=== PATIENT | male | born 1970 | race Caucasian/White ===

== ENCOUNTER 2024-02-22 11:59 | Inpatient (IN) | payer OTHER, SELFPAY ==
[2024-02-22] VITALS (11 sets, daily range): BP systolic 117–171; BP diastolic 79–97; BMI 38.7; BMI 43.4
--- NOTE | 2024-02-22 08:52 | ED.GENMED ---
History of Present Illness
General
Chief Complaint: Abdominal Pain
Source: patient
Time Seen by Provider: 02/22/24 08:39
Travel History
Have you had any contact with someone who has COVID-19?: No
Do you have any symptoms of coronavirus? Fever > 100 degrees, chills, cough, shortness of breath, sore throat, loss of taste or smell, muscle aches, or headache?: No
History of Present Illness
History of Present Illness:
54-year-old male with past medical history of hypertension presenting the emergency department for sudden onset right-sided flank pain radiating into the right groin starting 40 minutes prior to arrival, severe, rated a 40 out of 10 associated
nausea and diaphoresis, did not take anything for pain prior to arrival. Denies any history of similar. No prodromal symptoms. Denies any urinary symptoms, bowel changes, fevers or infectious symptoms. Social history was significant for drinking
4-5 beers daily. Surgical history noncontributory.
Past History
Past History
ED Past Medical History: HTN
ED Past Surgical History: Orthopedic
Social History
Tobacco: Non-smoker
Alcohol: Daily
Drug: None
Personal: Single
Living: with family
Review of Systems
Review of Systems
All Other Systems: ROS reviewed and negative except as documented in HPI and ROS
Phy Exam
Physical Exam
Physical Exam:
GENERAL: Alert , appears very uncomfortable, difficult time sitting still, diaphoretic
EYE: clear conjunctiva b/l
HEAD: NCAT
ENT: o/p clr, mmm.
CARDIAC: Regular rate and rhythm .
LUNGS: Clear breath sounds bilaterally, no acute respiratory distress, no wheezes/rales/rhonchi
ABDOMEN: Soft, tender within the right side of the abdomen extending towards the right flank, no r/g, no cvat, negative Cui sign, no tenderness at McBurney's point
Genitourinary: No testicular edema or erythema, no tenderness over the testicle, normal testicular lie, no hernias or masses appreciated. Positive cremasteric reflex bilateral. No discharge from the urethra
NEUROLOGICAL: Alert and oriented
SKIN: Warm and dry, skin intact.
MUSCULOSKELETAL: well perfused.
PSYCH: Normal and appropriate interaction.
Scores
Heart Failure Risk
Heart Failure Risk Score: Not Applicable
Heart Score for Chest Pain Patients
STEMI patient?: Not applicable
Withdrawal Assessment of Alcohol
Withdrawal Assessment Completed?: Not applicable
Course
Orders/Labs/Results
Orders:
Orders
02/22/24 08:44
Urinalysis Reflex To Culture Urgent
0.9% Sodium Chloride 1000 ml [Nss] 1,000 ml IV BOLUS
Ketorolac [Toradol] 30 mg IV NOW STA
Ondansetron Injectable [Zofran] 4 mg IV NOW STA
02/22/24 08:56
CT Abd/pelvis W Iv Cont Urgent
Comment:
Reason For Exam: right sided flank pain/abd pain
02/22/24 09:01
Complete Blood Count/With Diff Urgent
Comprehensive Metabolic Panel Urgent
Lipase Urgent
02/22/24 09:07
HYDROmorphone [Dilaudid] 1 mg IV NOW STA
02/22/24 10:30
Piperacillin/Tazo 3.375 Gram [Zosyn] 3.375 gram in 50 ml IV NOW
02/22/24 10:44
Acetaminophen [Tylenol] 1,000 mg .ROUTE .STK-MED ONE
Acetaminophen [Tylenol] 1,000 mg PO NOW STA
02/22/24 10:47
Lactic Acid Q4H
Comment: CANCEL 2nd LACTIC ACID IF 1st LACTIC ACID IS LESS THAN 2
Blood Culture Q30M
VIELKA Source: Blood/Venous
Specimen Description:
02/22/24 10:56
Blood Culture Q30M
VIELKA Source: Blood/Venous
Specimen Description:
02/22/24 11:48
Admit/Transfer Patient As Directed
Co-Sign Provider:
Level of Care: Inpatient admission
Assign to:: Medical/Surgical
Physician / Group: Richard Veloz
Diagnosis: diverticulitis
Reason for Hospitalization: diverticulitis
Expected length of stay greater than two midnights?: Yes
ELOS- Estimated Length of Stay in days: 3
I certify the patient meets the requirements for IP care: Yes
Abnormal Lab Results
02/22/24
09:01
WBC 12.2 H 10^3/uL
(4.8-10.8)
Abs Immat Gran (auto) 0.1 H 10^3/uL
(0-0.05)
Absolute Neuts (auto) 7.5 H 10^3/uL
(1.4-6.5)
Absolute Lymphs (auto) 3.6 H 10^3/uL
(1.2-3.4)
Absolute Monos (auto) 0.9 H 10^3/uL
(0.1-0.6)
Glucose 145 H mg/dl
(70-99)
Total Bilirubin 1.8 H mg/dl
(0.2-1.3)
02/22/24 09:01
02/22/24 09:01
Vital Signs
Initial and Last Documented VS:
Initial Vital Signs
Temp Pulse Resp BP Pulse Ox
98.3 F 104 16 171/97 95
02/22/24 08:31 02/22/24 08:31 02/22/24 08:31 02/22/24 08:31 02/22/24 08:31
Last Documented Vital Signs
Temp Pulse Resp BP Pulse Ox
99.8 F 103 16 146/90 94
02/22/24 10:40 02/22/24 11:00 02/22/24 11:00 02/22/24 10:40 02/22/24 11:00
MDM/Problems Addressed
Differential Diagnosis Includes:
Renal/ureteral colic, urinary tract infection/pyelonephritis, dissection
MDM/Problems Addressed:
54-year-old male presenting emergency department for sudden onset right flank pain, 10 out of 10, unable to sit still and very uncomfortable/in a great deal of pain on arrival to the emergency department. Hypertension noted. I do suspect
renal/ureteral colic to be the most likely diagnosis given the sudden onset pain however given patient's hypertension and presentation dissection is certainly in the differential. Will obtain CT with IV contrast. Labs ordered. Toradol, Zofran and
fluids ordered. Reassessment following
Chronic conditions affecting care: HTN
*Radiology
Radiology exam reviewed: preliminary read by ED provider
*Pulse Oximetry
Patient hypoxic: no
*Critical Care Note
Total Time (30-74mins, 75-104mins- exclusive of procedures): Not Applicable
Comment
Comment:
On first reevaluation around 10 AM patient did report improved symptoms following the 1 mg of Dilaudid. He still does appear to be uncomfortable but states he does not wish to have any further medication at this time
Patient Management
Discussion with other providers: Hospitalist and Claim Auditor
Escalation/DeEscalation of care consider admission/obs:
Patient CT scan shows the following:
There is focal thickening of the wall the distal ileum, with significant stranding of the surrounding fat, findings suggestive of an inflammatory process. There are diverticula in this region of the distal ileum, and findings would be most
suggestive of diverticulitis arising from the distal ileum. As the main differential consideration, this could represent diverticulitis arising from the medial cecum with secondary involvement of the distal ileum. A severe terminal ileitis could be
considered, but felt to be less likely.
Question of tiny foci of contained extraluminal air adjacent to the distal ileum. No evidence of free intraperitoneal air. No evidence for a drainable fluid collection, given the limitation of a lack of GI luminal contrast agent.
The appendix is visualized, and is not within this presumed inflammatory process. No CT findings to suggest appendicitis.
Patient has an elevated white blood cell count, continued discomfort and likely microperforation secondary to diverticulitis. Given these findings I do feel patient would benefit from admission for IV antibiotics. On vital sign recheck patient was
noted to have a temperature now of 99.8. Lactic acid and blood cultures were sent. Zosyn ordered. I notified the hospitalist team who accepts patient for continued evaluation and treatment as well as colorectal who will come to the emergency
department to consult on the patient. Patient is agreeable with this plan.
ED Attending Note
-
Portions of this chart may have been created with voice recognition software.� Occasional wrong word or��sound alike� substitutions may have occurred due to the inherent limitations of voice recognition software.
Discharge Plan
Departure
Patient Disposition: Admit
Date of Disposition: 02/22/24
Time of Disposition: 10:35
Presentation/result/management discussed w/ accepting MD/DO: Hospitalist
Discharge Problem:
Acute diverticulitis
Interventions
Interventions:
*Risk Screen - Suicide Last Done: 02/22/24 08:31
*Neglect/Abuse Screening Last Done: 02/22/24 08:31
ED- Fall Risk Assessment Last Done: 02/22/24 11:31
*ED COVID-19 Vaccine History Last Done: 02/22/24 08:31
EL-Ucmeoi-Aqrhukcfvz Assessment Last Done: 02/22/24 09:06
[2024-02-22] MEDS: NSS 1000 IV ×2 (08:58→13:21)
[2024-02-22] MEDS: TORADOL 30 MG IV (08:59)
[2024-02-22] MEDS: ZOFRAN 4 MG IV (09:00)
[2024-02-22 09:14] LABS: % Basophils 0.3 % (0-2); % Eosinophils 0.3 % (0-6); % Immature Granulocytes 0.4 % (0-0.5); % Lymphocytes 29.4 % (20.5-51.1); % Monocytes 7.6 % (1.7-9.3); Absolute Immature Granulocytes 0.1 10^3/uL (0-0.05); Absolute Lymphocytes 3.6 10^3/uL (1.2-3.4); Absolute Monocytes 0.9 10^3/uL (0.1-0.6); Absolute Neutrophils 7.5 10^3/uL (1.4-6.5); Hematocrit 40.8 % (39.0-52.0); Hemoglobin 13.9 g/dL (13.0-18.0); Mean Corp Hgb Conc. 34.1 g/dL (33.0-37.0); Mean Corpuscular Hgb 28.3 pg (27.0-31.0); Mean Corpuscular Volume 82.9 fL (80.0-94.0); Mean Platelet Volume 8.7 fL (7.4-10.4); Nucleated Red Blood Cells % 0 % (-); Platelet Count 218 10^3/uL (130-400); Red Blood Cell Count 4.92 10^6/uL (4.70-6.10); Red Cell Dist. Width 13.2 % (11.5-14.5); White Blood Cell Count 12.2 10^3/uL (4.8-10.8)
[2024-02-22] MEDS: DILAUDID 1 MG IV ×5 (09:25→22:26)
[2024-02-22 09:26] LABS: ALT (SGPT) 21 U/L (0-50); AST (SGOT) 19 U/L (17-59); Albumin 4.3 g/dl (3.5-5.0); Alkaline Phosphatase 85 U/L (38-126); Blood Urea Nitrogen 11 mg/dl (9-20); Calcium 9.3 mg/dl (8.4-10.2); Carbon Dioxide 22 mmol/L (22-30); Chloride 105 mmol/L (98-107); Estimated Creatinine Clearance > 125 ml/min; Glucose 145 mg/dl (70-99); Lipase 50 U/L (23-300); Potassium 4.2 mmol/L (3.5-5.1); Sodium 135 mmol/L (135-145); Total Bilirubin 1.8 mg/dl (0.2-1.3); Total Protein 7.5 g/dl (6.3-8.2); eGFR > 60.00
[2024-02-22] MEDS: ZOSYN 50 IV (10:39)
--- NOTE | 2024-02-22 10:39 | HPS.HSE ---
Addendum entered and electronically signed by Richard Veloz MD 02/22/24 12:48:
I saw and examined the patient.
The PA's note was reviewed and I agree with the note.
Comment:
Patient seen and examined with PA.
History, vitals, labs, and imaging reviewed.
54-year-old male with terminal ileitis with microperforation of unclear cause evident on CT scan. No abscesses noted. Differential includes small bowel diverticulitis versus enteritis. This is a new issue for this patient. Symptoms include right
lower quadrant pain and fever. He is also mildly tachycardic but normotensive. On exam he has moderate localized right lower quadrant tenderness. No personal or family history of inflammatory bowel disease. No prior colonoscopies. At this point
in time there is no need for urgent surgical intervention. Obviously, if his situation does not improve, surgical intervention may be required. Will admit to the hospital, keep n.p.o., continue fluid resuscitation, and start empiric antibiotics in
the form of Zosyn. Will check CRP and fecal procalcitonin. Will start ETH protocol given history of daily substantial alcohol use.
Original Note:
Family Physician
-
Family Physician: * NONE
Chief Complaint
-
right sided flank pain
History of Present Illness
54yo male with a PMH of HTN presents to the ER on 02/22/2024 complaining of right sided abdominal pain that radiated to the groin that started this morning while at [employer] getting coffee. The patient states the pain was a '40 out of 10'. Now he states
it's more like a '5/10'. He also states he feels bloated. He denies nausea, vomiting, fevers, or chills. He has never had pain like this before. He denies any previous episodes of diverticulitis. He denies issues with urination. His last bowel
movement was this morning. He regularly goes every day in the morning. He did not notice any blood in his stool this morning. He has never had a colonoscopy. He denies a family history of rectal or colon cancer, Crohns, or Ulcerative colitis.
In the ER his WBC was 12.2. His vitals are normal and he is afebrile. CT shows there is focal thickening of the wall the distal ileum, with significant stranding of the surrounding fat, findings suggestive of an inflammatory process. There are
diverticula in this region of the distal ileum, and findings would be most suggestive of diverticulitis arising from the distal ileum. As the main differential consideration, this could represent diverticulitis arising from the medial cecum with
secondary involvement of the distal ileum. A severe terminal ileitis could be considered, but felt to be less likely. He will be admitted for further workup.
Medical History
Past Medical History
Past Medical History: Reports HTN ('borderline')
Past Surgical History: Reports Orthopedic (b/l knee surgeries years ago)
Social History
Tobacco: Non-smoker
Alcohol: Daily (4-5 beers a day, 5 days a week)
Drug: None
Personal: Single
Family History
Family History: Not pertinent
Allergies / Home Medications
Allergies reflects when Allergies were last updated in [facility].
Home Medications with original date entered in [facility] [facility]
Allergy/Medication List:
Allergies: NKDA
Medications: none
Review of Systems
-
History Source: Patient
Abdomen/GI: Reports Abdominal Pain (RLQ) and Other (abdominal bloating)
: Reports Flank Pain
Physical Exam
Vital Signs
Vital Signs
Temp Pulse Resp BP Pulse Ox
98.3 F 96 13 152/94 94
02/22/24 08:31 02/22/24 09:31 02/22/24 09:31 02/22/24 09:00 02/22/24 09:31
Physical Exam
General: Well Developed, Well Nourished and No Apparent Distress
GI: Soft, Tender (RLQ- moderate) and Distended (slight)
Skin: Warm and Dry
Neuro: AO x 3
Psych: Calm
Laboratory Results
-
02/22/24 09:
02/22/24 09:
Laboratory Results
Total Bilirubin 1.8 mg/dl (0.2-1.3) H 02/22/24 09:
AST 19 U/L (17-59) 02/22/24 09:
ALT 21 U/L (0-50) 02/22/24 09:
Alkaline Phosphatase 85 U/L (38-126) 02/22/24 09:
Lipase 50 U/L (23-300) 02/22/24 09:
Data Reviewed
-
CT Scan: Image Personally Visualized and interpreted, Report Reviewed by me and Discussed with Patient
Lab Data: Labs Reviewed by me, Discussed with Physician and Discussed with Patient
Impression/Plan
-
IMPRESSION: 54yo male with a PMH of HTN presents to the ER with right sided abdominal/flank pain, found to have inflammatory fat stranding adjacent to the cecum most compatible with acute diverticulitis, WBC 12.2, vitals normal.
PLAN:
1. Admit to our service on med surg.
2. Remain NPO with IVFs.
3. Continue zosyn IV antibiotics.
4. Will need eventual outpatient colonoscopy.
5. ETOH protocol given 4-5 beers/day.
6. DVT prophylaxis: Lovenox, TEDS/SCDS.
7. Tylenol/Toradol/Dilaudid PRN for pain. Zosyn PRN nausea.
8. Will send CRP and fecal procalcitonin.
9. No plans for surgery at this time, however, if worsens, he will require a colectomy. Discussed with patient.
--- NOTE | 2024-02-22 10:57 | EDRN ---
The IV ABX was stopped after only a few drops so BC could be obtained ( they were ordered AFTER the ABX was ordered ) I restarted it after cultures
[2024-02-22] MEDS: TYLENOL 1000 MG PO (11:00)
[2024-02-22 11:09] LABS: Lactic Acid 1.9 mmol/L (0.7-2.0)
[2024-02-22] MEDS: DILAUDID 0.5 MG IV (12:25)
--- NOTE | 2024-02-22 14:53 | CON.HOSP ---
Family Physician
-
Family Physician: * NONE
Chief Complaint
-
Medical consultation
History of Present Illness
54-year-old male with past medical history of hypertension now presents for acute onset of right sided flank pain rating to the right groin. Associated nausea, diaphoresis, started 40 minutes prior to arrival to the hospital. Otherwise denies
fever, chills, vomiting, urinary symptoms, bowel changes. Does drink 4-5 beers daily. Vitals remarkable for temperature 102.9, pulse 113, blood pressure 135/79, respiratory 20. White count 12.2, lactate 1.9. Imaging remarkable for possible
diverticulitis arising from the distal ileum, questionable tiny foci of contained extraluminal air adjacent to the distal ileum possible microperforation. Patient mated for terminal ileitis with microperforation of unclear cause.
Medical History
Past Medical History
Past Medical History: Reports HTN
Past Surgical History: Reports Orthopedic
Social History
Tobacco: Non-smoker
Alcohol: Daily (Fortified beers a day, 5 days a week)
Personal: Single
Family History
Family History: Reviewed & Not Pertinent
Allergies / Home Medications
Allergies reflects when Allergies were last updated in [facility] [employer] [facility].
Home Medications with original date entered in [facility] [employer]
Allergy/Medication List:
Allergies
Allergy/AdvReac Type Severity Reaction Status Date / Time
No Known Allergies Allergy Verified 02/22/24 10:36
Home Medications
No Meds [No Current Medications] 02/22/24
Review of Systems
-
History Source: Patient
A 12 point Review of Systems was completed except as noted: Yes
Physical Exam
Vital Signs
Vital Signs
Temp Pulse Resp BP Pulse Ox
102.9 F H 113 20 135/79 94
02/22/24 14:01 02/22/24 14:01 02/22/24 14:01 02/22/24 14:01 02/22/24 14:01
Physical Exam
General: Well Developed
HEENT: Normocephalic and Anicteric
Respiratory: Clear
Cardiac: S1/S2 and Regular Rhythm
GI: Soft, Tender (RLQ- moderate) and Distended (mild)
Genito-urinary: No Costovertebral Tend
Musculoskeletal: No Clubbing
Skin: Warm and Dry
Neuro: Awake, Alert, Oriented and AO x 3
Psych: Calm
Laboratory Results
-
Laboratory Results
02/22/24 09:01
02/22/24 09:01
Lactic Acid Cancelled 02/22/24 14:45
Total Bilirubin 1.8 mg/dl (0.2-1.3) H 02/22/24 09:01
AST 19 U/L (17-59) 02/22/24 09:01
ALT 21 U/L (0-50) 02/22/24 09:01
Alkaline Phosphatase 85 U/L (38-126) 02/22/24 09:01
Lipase 50 U/L (23-300) 02/22/24 09:01
Data Reviewed
-
CT Scan: Image personally visualized and interpreted and Report Reviewed by Me
Lab Data: Labs Reviewed
Impression / Plan
-
IMPRESSION:
54-year-old male with past medical history of hypertension now presents for acute onset of right sided flank pain rating to the right groin with CT imaging concerning for terminal ileitis with microperforation.
PLAN:
#Sepsis
� Secondary to acute diverticulitis/ileitis with possible complication of microperforation
� N.p.o.
� Continue Zosyn
� Follow-up blood, ua, and stool cultures
� IVF
�Eventual outpatient colonoscopy
� Pain control
� Ensure MAPs remain above 65
#Alcohol abuse
� Continue CIWA protocol
� Ativan as needed
� Drinks 4-5 beers a day
#DVT prophylaxis
� Lovenox
[2024-02-22] MEDS: LR 1000 IV ×2 (15:23→17:07)
[2024-02-22] MEDS: ZOSYN 100 IV ×2 (16:14→21:41)
[2024-02-22] MEDS: LOVENOX 40 MG SC (18:45)
[2024-02-22] MEDS: TORADOL 15 MG IV ×2 (18:46→23:55)
[2024-02-22] MEDS: THIAMINE INJECTION 200 MG IV (20:12)
--- NOTE | 2024-02-22 20:16 | PTCARENOTE ---
Received pt from ER.Pt awake, alert and oriented x3. Pt c/o 8/10 pain in right abd, temp elevated, given IV toradol per schedule. Pt other VSS 96% on RA. Pt has no c/o nausea at this time. Pain reassessed still 8/10 given Dilaudid per orders. Temp
now 99.5. Pt oriented to room, call [facility] within reach, instructed to ring for assistance with any weakness or dizziness, verbalized understanding, on MSAS protocol. Plan of care continues
[2024-02-23] MEDS: LR 1000 IV ×3 (02:08→16:15)
[2024-02-23] MEDS: ZOSYN 100 IV ×4 (04:00→23:04)
[2024-02-23] MEDS: TORADOL 15 MG IV ×4 (05:23→23:04)
[2024-02-23 05:32] LABS: % Basophils 0.3 % (0-2); % Eosinophils 0.2 % (0-6); % Immature Granulocytes 0.3 % (0-0.5); % Lymphocytes 11.5 % (20.5-51.1); % Monocytes 6.6 % (1.7-9.3); % Neutrophils 81.1 % (42.2-75.2); Absolute Lymphocytes 1.4 10^3/uL (1.2-3.4); Absolute Monocytes 0.8 10^3/uL (0.1-0.6); Absolute Neutrophils 9.5 10^3/uL (1.4-6.5); Hematocrit 38.8 % (39.0-52.0); Hemoglobin 12.5 g/dL (13.0-18.0); Mean Corp Hgb Conc. 32.2 g/dL (33.0-37.0); Mean Corpuscular Hgb 28.3 pg (27.0-31.0); Mean Platelet Volume 8.9 fL (7.4-10.4); Nucleated Red Blood Cells % 0 % (-); Platelet Count 173 10^3/uL (130-400); Red Blood Cell Count 4.41 10^6/uL (4.70-6.10); Red Cell Dist. Width 13.5 % (11.5-14.5); White Blood Cell Count 11.7 10^3/uL (4.8-10.8)
[2024-02-23 06:06] LABS: Blood Urea Nitrogen 20 mg/dl (9-20); Calcium 8.5 mg/dl (8.4-10.2); Carbon Dioxide 24 mmol/L (22-30); Chloride 104 mmol/L (98-107); Estimated Creatinine Clearance 116 ml/min; Glucose 127 mg/dl (70-99); Potassium 4.3 mmol/L (3.5-5.1); Sodium 137 mmol/L (135-145); eGFR > 60.00
[2024-02-23 08:01] LABS: Urine Albumin Trace (Neg - Trace); Urine Bilirubin 1+ (Negative); Urine Character Clear (Clear); Urine Color Amber; Urine Glucose Negative (Negative); Urine Ketone 1+ (Negative); Urine Leukocyte Trace (Negative); Urine Nitrite Negative (Negative); Urine Occult Blood Negative (Negative); Urine Specific Gravity 1.015 (<1.030); Urine Urobilinogen 1+ (Neg - 1+)
[2024-02-23 08:17] LABS: Urine Squamous Cell 0-2 /LPF (Few)
[2024-02-23 08:18] LABS: Urine Red Blood Cell 0-2 /HPF (0-2); Urine White Cell 0-2 /HPF (0-5)
[2024-02-23] MEDS: FOLVITE PO (08:18)
[2024-02-23] MEDS: THIAMINE INJECTION 200 MG IV ×2 (08:22→19:59)
[2024-02-23] MEDS: DILAUDID 1 MG IV ×3 (08:30→16:16)
[2024-02-23 09:37] VITALS: BP 140/88
--- NOTE | 2024-02-23 10:04 | W.PN.CRS1 ---
Today's Communication / Plan
-
clears
iv antibiotics
blood cultures pending
Assessment/Plan
-
IMPRESSION: 54yo male with a PMH of HTN presents to the ER with right sided abdominal/flank pain, found to have inflammatory fat stranding adjacent to the cecum most compatible with acute diverticulitis, WBC 12.2, vitals normal.
PLAN:
1. Vitals improving. No longer tachycardic. Afebrile since 1899 yesterday.
2. Advance diet to clears.
3. Continue zosyn IV antibiotics. Blood cultures pending.
4. Will need eventual outpatient colonoscopy.
5. ETOH protocol given 4-5 beers/day.
6. DVT prophylaxis: Lovenox, TEDS/SCDS.
7. Tylenol/Toradol/Dilaudid PRN for pain. Zosyn PRN nausea.
8. Fecal procalcitonin pending.
9. No plans for surgery at this time, however, if worsens, he will require a colectomy. Discussed with patient.
Subjective Data
Subjective Data
Date of Service: February 23, 2024
Patient states he has no appetite. He has not had a bowel movement yet. He does feel a little bit better today as far as his pain goes.
Objective Data
-
Vital Signs
Temp Pulse Resp BP Pulse Ox
99.2 F 94 20 140/88 95
02/23/24 04:00 02/23/24 09:37 02/22/24 23:34 02/23/24 09:37 02/22/24 23:34
Intake & Output
02/22/24 02/23/24 02/24/24
06:59 06:59 06:59
Other:
Number of approximated MODERATE 1
amounts of urine
Lab Results
02/23/24 04:55
02/23/24 04:55
Physical Exam
-
General: No Acute Distress and AOx3
Abdomen: Soft, Non Distended and Tender (RLQ - moderate (improved))
Skin: Warm and Dry
[2024-02-23 11:22] VITALS: BP 146/62
--- NOTE | 2024-02-23 13:55 | W.PN.HOSP.TC ---
Today's Communication/Plan
-
adv to cld
inc kizzy
abx
f/u cultures
Assessment / Plan
Assessment / Plan
Physical Exam
General: Well Developed
HEENT: Normocephalic and Anicteric
Respiratory: Clear
Cardiac: S1/S2 and Regular Rhythm
GI: Soft, Tender (RLQ-mild) and Distended (mild)
Genito-urinary: No Costovertebral Tend
Musculoskeletal: No Clubbing
Skin: Warm and Dry
Neuro: Awake, Alert, Oriented and AO x 3
Psych: Calm
54-year-old male with past medical history of hypertension now presents for acute onset of right sided flank pain rating to the right groin with CT imaging concerning for terminal ileitis with microperforation.
PLAN:
#Sepsis
� Secondary to acute diverticulitis/ileitis with possible complication of microperforation
� Adv to CLD
� Continue Zosyn
� Follow-up blood, stool cultures
� IVF
�Eventual outpatient colonoscopy
� Pain control
� Ensure MAPs remain above 65
#Alcohol abuse
� Continue CIWA protocol
� Ativan as needed
� Drinks 4-5 beers a day
#DVT prophylaxis
� Lovenox
Anticipated Discharge: 24 - 48 hours
Subjective/Interval History
-
Date of Service: February 23, 2024
Feels better today
Objective Data
-
Labs:
Laboratory Results
02/23/24
04:55
WBC 11.7 H
Hgb 12.5 L
Hct 38.8 L
Plt Count 173 D
Sodium 137
Potassium 4.3
Chloride 104
Carbon Dioxide 24
BUN 20
Creatinine 1.0
Glucose 127 H
Calcium 8.5
Vital Signs:
Vital Signs
Temp Pulse Resp BP Pulse Ox
98.2 F 102 18 146/62 97
02/23/24 11:22 02/23/24 11:22 02/23/24 11:22 02/23/24 11:22 02/23/24 11:22
Review of Systems
-
History Source: Patient
All other systems: Not reviewed unless documented
Data Reviewed
-
Diagnostic Radiology: Image personally visualized and interpreted and Report Reviewed by me
CT Scan: Image personally visualized and interpreted and Report Reviewed by me
Labs: Labs Reviewed by me
[2024-02-23 15:25] VITALS: BP 154/98
--- NOTE | 2024-02-23 16:28 | CM ---
,met with patient at bedside.patient lives with alone in an apt with 6 steps down to his apt.then everything is on one floor.he amb i and is i with his adl's.his pcp is [facility] and he uses [facility] [address]he is adm with
abd pain/diverticulitis and is on pain meds,,ciwa protocol, startting cleats.i spoke with patient about whether he would like to speak to b cares to assist with his etoh use.patient told cm he only drinks 2 beers per day and he does not need to
speak to anyone or need assistance/counseling.he told cm he made it to age 54 and he is fine.he has had a vn after dc [facility] many years ago and has never been in ip rehab.Plan dc home with no needs.
[2024-02-23] MEDS: LOVENOX 40 MG SC (17:23)
[2024-02-23 23:50] VITALS: BP 152/92
[2024-02-24] MEDS: LR 1000 IV ×3 (01:01→22:55)
[2024-02-24 03:58] VITALS: BP 150/83
[2024-02-24] MEDS: ZOSYN 100 IV ×4 (04:31→22:49)
[2024-02-24] MEDS: TORADOL 15 MG IV ×2 (05:00→17:36)
[2024-02-24 07:35] VITALS: BP 170/97
[2024-02-24 08:06] LABS: Hematocrit 34.2 % (39.0-52.0); Hemoglobin 11.4 g/dL (13.0-18.0); Mean Corp Hgb Conc. 33.3 g/dL (33.0-37.0); Mean Corpuscular Hgb 28.4 pg (27.0-31.0); Mean Corpuscular Volume 85.3 fL (80.0-94.0); Mean Platelet Volume 9.7 fL (7.4-10.4); Platelet Count 186 10^3/uL (130-400); Red Blood Cell Count 4.01 10^6/uL (4.70-6.10); Red Cell Dist. Width 13.1 % (11.5-14.5); White Blood Cell Count 11.4 10^3/uL (4.8-10.8)
[2024-02-24] MEDS: FOLVITE 1 MG PO (08:33)
[2024-02-24] MEDS: THIAMINE INJECTION 200 MG IV ×2 (08:33→19:24)
[2024-02-24] MEDS: LR IV (08:34)
[2024-02-24 08:44] LABS: ALT (SGPT) 21 U/L (0-50); AST (SGOT) 23 U/L (17-59); Albumin 2.9 g/dl (3.5-5.0); Alkaline Phosphatase 81 U/L (38-126); Blood Urea Nitrogen 17 mg/dl (9-20); Calcium 8.1 mg/dl (8.4-10.2); Carbon Dioxide 25 mmol/L (22-30); Chloride 102 mmol/L (98-107); Estimated Creatinine Clearance > 125 ml/min; Glucose 110 mg/dl (70-99); Potassium 3.6 mmol/L (3.5-5.1); Sodium 134 mmol/L (135-145); Total Bilirubin 1.7 mg/dl (0.2-1.3); Total Protein 5.7 g/dl (6.3-8.2); eGFR > 60.00
[2024-02-24] MEDS: DILAUDID 0.5 MG IV ×3 (10:03→22:49)
--- NOTE | 2024-02-24 10:29 | W.PN.CRS1 ---
Today's Communication / Plan
-
Advance to fulls
Follow-up CRP
Assessment/Plan
-
54-year-old male with PMH of HTN, EtOH use who presented with severe right-sided abdominal pain, WBC 12.2, CRP 86.6, fever of 102.9, CT scan showing terminal ileitis with microperforation, diverticula noted in the area, differential includes
perforated small bowel diverticulitis versus enteritis versus penetrating Crohn's; being treated nonoperatively
AF, HR stable in 100s, WBC 11.4 from 11.7, abdominal pain and appetite improving
� Added CRP to a.m. labs to trend
� Continue nonoperative management, no acute surgical intervention indicated at this point
� Advance to full liquids
� Continue pain control with Toradol and Dilaudid as needed; added Tylenol ATC
�OOB/IS
� Continue DVT PPx with L BX
� OOB/IS
� Follow-up hospitalist for history of EtOH use
Subjective Data
Subjective Data
Date of Service: February 24, 2024
No overnight events. Overall, feels much better
Pain improved, but still present, controlled with pain medicine.
Denies nausea/vomiting. Tolerating clears, but not much appetite.
+flatus +BMs +voiding
Pt is OOB.
Objective Data
-
Vital Signs
Temp Pulse Resp BP Pulse Ox
98.5 F 101 18 170/97 96
02/24/24 07:35 02/24/24 07:35 02/24/24 07:35 02/24/24 07:35 02/24/24 07:35
Intake & Output
02/23/24 02/24/24 02/25/24
06:59 06:59 06:59
Intake Total 2360 / 2360
Output Total 1550 / 1550
Balance 810 / 810
Intake:
Oral fluids 960 / 960
IV fluids (Total) 1200 / 1200
IV piggybacks 200 / 200
Output:
Urine, Voided 1550 / 1550
Other:
Number of approximated MODERATE 1
amounts of urine
Lab Results
02/24/24 06:36
02/24/24 06:36
Physical Exam
-
General: No Acute Distress and AOx3
HEENT: Grossly Normal
Abdomen: Soft, Non Distended and Tender (Mildly tender in the right mid to lower quadrant, no rebound or guarding)
Skin: Warm and Dry
[2024-02-24] MEDS: TYLENOL 1000 MG PO ×3 (12:11→23:01)
[2024-02-24 12:56] LABS: C-Reactive Protein > 270.00 mg/L (0.0-10.00)
--- NOTE | 2024-02-24 13:17 | W.PN.HOSP.TC ---
Today's Communication/Plan
-
adv to full liq
ivf
add amlodipine
Assessment / Plan
Assessment / Plan
Physical Exam
General: Well Developed
HEENT: Normocephalic and Anicteric
Respiratory: Clear
Cardiac: S1/S2 and Regular Rhythm
GI: Soft, Tender (RLQ-mild)
Genito-urinary: No Costovertebral Tend
Musculoskeletal: No Clubbing
Skin: Warm and Dry
Neuro: Awake, Alert, Oriented and AO x 3
Psych: Calm
54-year-old male with past medical history of hypertension now presents for acute onset of right sided flank pain rating to the right groin with CT imaging concerning for terminal ileitis with microperforation.
PLAN:
#Sepsis
� Secondary to acute diverticulitis/ileitis with possible complication of microperforation
� Adv to full liquid diet
� Continue Zosyn
� Follow-up blood, stool cultures
� IVF
�Eventual outpatient colonoscopy
� Pain control
� Ensure MAPs remain above 65
#Hyponatremia
� Monitor with resuscitation
#Hypertension
� Start amlodipine
#Alcohol abuse
� Continue CIWA protocol
� Ativan as needed
� Drinks 4-5 beers a day
� Cessation advised, follow-up outpatient
#DVT prophylaxis
� Lovenox
Anticipated Discharge: 24 - 48 hours
Subjective/Interval History
-
Date of Service: February 24, 2024
Feels better, advancing to full liquids
Objective Data
-
Labs:
Laboratory Results
02/24/24
06:36
WBC 11.4 H
Hgb 11.4 L
Hct 34.2 L
Plt Count 186
Sodium 134 L
Potassium 3.6
Chloride 102
Carbon Dioxide 25
BUN 17
Creatinine 0.8
Glucose 110 H
Calcium 8.1 L
Total Bilirubin 1.7 H
AST 23
ALT 21
Alkaline Phosphatase 81
Vital Signs:
Vital Signs
Temp Pulse Resp BP Pulse Ox
98.5 F 101 18 170/97 96
02/24/24 07:35 02/24/24 07:35 02/24/24 07:35 02/24/24 07:35 02/24/24 07:35
I&O
02/23/24 02/24/24 02/25/24
06:59 06:59 06:59
Intake Total 2360 / 2360
Output Total 1550 / 1550
Balance 810 / 810
Review of Systems
-
History Source: Patient
All other systems: Not reviewed unless documented
Data Reviewed
-
Diagnostic Radiology: Image personally visualized and interpreted and Report Reviewed by me
CT Scan: Image personally visualized and interpreted and Report Reviewed by me
Labs: Labs Reviewed by me
[2024-02-24] MEDS: NORVASC 5 MG PO (14:47)
[2024-02-24 15:35] VITALS: BP 159/90
[2024-02-24] MEDS: LOVENOX 40 MG SC (17:36)
[2024-02-24 23:48] VITALS: BP 162/93
[2024-02-25 03:30] VITALS: BP 153/100
[2024-02-25] MEDS: ZOSYN 100 IV ×2 (04:07→09:37)
[2024-02-25] MEDS: DILAUDID 0.5 MG IV (04:50)
[2024-02-25] MEDS: TYLENOL 1000 MG PO ×2 (05:54→11:53)
[2024-02-25 07:25] VITALS: BP 163/109
[2024-02-25 08:35] LABS: % Basophils 0.3 % (0-2); % Eosinophils 1.4 % (0-6); % Immature Granulocytes 0.4 % (0-0.5); % Lymphocytes 13.8 % (20.5-51.1); % Monocytes 6.4 % (1.7-9.3); % Neutrophils 77.7 % (42.2-75.2); Absolute Eosinophils 0.1 10^3/uL (0-0.7); Absolute Lymphocytes 1.4 10^3/uL (1.2-3.4); Absolute Monocytes 0.6 10^3/uL (0.1-0.6); Absolute Neutrophils 7.7 10^3/uL (1.4-6.5); Hematocrit 35.7 % (39.0-52.0); Mean Corp Hgb Conc. 33.6 g/dL (33.0-37.0); Mean Corpuscular Hgb 28.2 pg (27.0-31.0); Mean Platelet Volume 8.9 fL (7.4-10.4); Nucleated Red Blood Cells % 0 % (-); Platelet Count 208 10^3/uL (130-400); Red Blood Cell Count 4.25 10^6/uL (4.70-6.10); Red Cell Dist. Width 13.2 % (11.5-14.5)
[2024-02-25] MEDS: THIAMINE INJECTION 200 MG IV (08:51)
[2024-02-25] MEDS: FOLVITE 1 MG PO (08:51)
[2024-02-25] MEDS: NORVASC 5 MG PO (08:51)
[2024-02-25 08:58] LABS: Blood Urea Nitrogen 8 mg/dl (9-20); Calcium 8.4 mg/dl (8.4-10.2); Carbon Dioxide 28 mmol/L (22-30); Chloride 103 mmol/L (98-107); Estimated Creatinine Clearance > 125 ml/min; Glucose 100 mg/dl (70-99); Potassium 3.6 mmol/L (3.5-5.1); Sodium 135 mmol/L (135-145); eGFR > 60.00
--- NOTE | 2024-02-25 09:44 | W.PN.CRS1 ---
Today's Communication / Plan
-
Advance to low residue
If tolerating, okay for DC; follow-up in 2 to 4 weeks
Assessment/Plan
-
54-year-old male with PMH of HTN, EtOH use who presented with severe right-sided abdominal pain, WBC 12.2, CRP 86.6, fever of 102.9, CT scan showing terminal ileitis with microperforation, diverticula noted in the area, differential includes
perforated small bowel diverticulitis versus enteritis versus penetrating Crohn's; being treated nonoperatively
AF, HR stable in 90s, WBC 10.0 from 11.4, CRP 269 from >270, abdominal pain and appetite improving
� Continue nonoperative management, no acute surgical intervention indicated at this point
� Advance to low residue
� Continue pain control with Toradol and Dilaudid as needed; added Tylenol ATC
�OOB/IS
� Continue DVT PPx with Lvx
� OOB/IS
� Follow-up hospitalist for history of EtOH use
Dispo�if tolerating low residue, okay for discharge this afternoon; follow-up in 2-4 weeks
Subjective Data
Subjective Data
Date of Service: February 25, 2024
No overnight events.
Pain controlled.
Denies nausea/vomiting. Tolerating fulls.
+flatus +BMs +voiding
Pt is OOB.
Objective Data
-
Vital Signs
Temp Pulse Resp BP Pulse Ox
98.7 F 93 18 163/109 96
02/25/24 07:25 02/25/24 07:25 02/25/24 07:25 02/25/24 07:25 02/25/24 07:25
Intake & Output
02/24/24 02/25/24 02/26/24
06:59 06:59 06:59
Intake Total 2360 / 2360 2600 / 2600
Output Total 1550 / 1550 700 / 700
Balance 810 / 810 2600 / 2600 -700 / -700
Intake:
Oral fluids 960 / 960 1200 / 1200
IV fluids (Total) 1200 / 1200 1200 / 1200
IV piggybacks 200 / 200 200 / 200
Output:
Urine, Voided 1550 / 1550 700 / 700
Other:
Number of approximated MODERATE 6
amounts of urine
Lab Results
02/25/24 08:01
02/25/24 08:01
Physical Exam
-
General: No Acute Distress and AOx3
HEENT: Grossly Normal
Abdomen: Soft, Non Distended and Tender (Mildly tender in the RLQ, improved from yesterday, no rebound or guarding)
Skin: Warm and Dry
--- NOTE | 2024-02-25 12:28 | W.PN.HOSP.TC ---
Today's Communication/Plan
-
lrd
Antibiotics as per surgery
anticipate dc today
amlodipine for hypertension - titrate as needed outpatient
Assessment / Plan
Assessment / Plan
Physical Exam
General: Well Developed
HEENT: Normocephalic and Anicteric
Respiratory: Clear
Cardiac: S1/S2 and Regular Rhythm
GI: Soft, Tender (RLQ-mild)
Genito-urinary: No Costovertebral Tend
Musculoskeletal: No Clubbing
Skin: Warm and Dry
Neuro: Awake, Alert, Oriented and AO x 3
Psych: Calm
54-year-old male with past medical history of hypertension now presents for acute onset of right sided flank pain rating to the right groin with CT imaging concerning for terminal ileitis with microperforation.
PLAN:
#Sepsis
� Secondary to acute diverticulitis/ileitis with possible complication of microperforation
� Adv to LRD - if tolerating can DC
� Continue Zosyn - dc with abx
� Follow-up blood, stool cultures - ngtd
� IVF
�Eventual outpatient colonoscopy
� Pain control
� Ensure MAPs remain above 65
#Hyponatremia
� Monitor with resuscitation
- resolved
#Hypertension
� Start amlodipine
- titrate outpatient with pcp
#Alcohol abuse
� Continue CIWA protocol
� Ativan as needed
� Drinks 4-5 beers a day
� Cessation advised, follow-up outpatient
#DVT prophylaxis
� Lovenox
Anticipated Discharge: Today
Subjective/Interval History
-
Date of Service: February 25, 2024
No acute events overnight, tolerated liquid diet well
Objective Data
-
Labs:
Laboratory Results
02/25/24
08:01
WBC 10.0
Hgb 12.0 L
Hct 35.7 L
Plt Count 208
Sodium 135
Potassium 3.6
Chloride 103
Carbon Dioxide 28
BUN 8 L
Creatinine 0.7
Glucose 100 H
Calcium 8.4
Vital Signs:
Vital Signs
Temp Pulse Resp BP Pulse Ox
98.7 F 93 18 163/109 95
02/25/24 07:25 02/25/24 07:25 02/25/24 07:25 02/25/24 07:25 02/25/24 08:20
I&O
02/24/24 02/25/24 02/26/24
06:59 06:59 06:59
Intake Total 2360 / 2360 2600 / 2600
Output Total 1550 / 1550 700 / 700
Balance 810 / 810 2600 / 2600 -700 / -700
Review of Systems
-
History Source: Patient
All other systems: Not reviewed unless documented
Data Reviewed
-
Diagnostic Radiology: Image personally visualized and interpreted and Report Reviewed by me
CT Scan: Image personally visualized and interpreted and Report Reviewed by me
Labs: Labs Reviewed by me
--- NOTE | 2024-02-25 14:39 | CM ---
met with patient today.espsis on iv bx to be changed to po.pain controlled,eventual op colonoscopy.if tolerating a LR diet can dc home with no needs.he has declined contact/resources from [facility].
[2024-02-25 15:35] VITALS: BP 187/106
--- NOTE | 2024-02-25 17:27 | W.DCSUMMARY ---
Discharge Summary
Discharge Data
Date of Admission: 02/22/24
Date of Discharge: 02/25/24
-
Pending Results: No
Hospital Course
Mr Jennings is a 54 yo male who presented through the ED with right sided abdominal and flank pain with terminal ileitis and microperforation of unclear cause evident on CT scan. He was admitted for IV antibiotics, bowel rest, IV hydration and close
monitoring. He responded well to medical management with no need for surgical intervention during his admission. He was mildly tachycardic with fevers on presentation with resolution prior to discharge. Leukocytosis present on admission also
resolved. He has improvement in pain and diet was able to be slowly advanced and well tolerated. Hospitalist team followed the patient during his stay for medical management with addition of PO antihypertensive which was continued upon discharge at
their recommendation. He was transitioned to PO antibiotic upon discharge with plan for outpatient follow up with surgery.
Discharge Plan
-
Patient Disposition: Home (Routine Discharge)
Discharge Diagnosis/Procedures: distal ileum inflammation
Condition: Good
Diet: Low Residue
Activity: No restrictions
Driving Restrictions: As prior to admission
Bathing Restrictions: None
Activity Restrictions/Additional Instructions:
Please follow up with your primary care provider regarding your blood pressure, a new medication was started this admission and may need titrated.
Instructions: Low Fiber Diet
Referrals:
Sheldon Lowry MD [Active] - in two to four weeks
Prescriptions:
New
acetaminophen [acetaminophen] 325 mg tablet
650 mg PO Q4HPRN PRN (Reason: mild pain) Qty: 1 0RF
ibuprofen 200 mg tablet
400 - 600 mg PO Q6HPRN PRN (Reason: moderate pain) Qty: 1 0RF
amoxicillin-pot clavulanate 875-125 mg tablet
1 tab PO Q12 Qty: 11 0RF
amlodipine 5 mg Tablet
5 mg PO DAILY Qty: 30 0RF
Discharge Orders:
Discharge Patient (As Directed); Ordered 02/25/24
Ordered By: Cindy Pinto
Discharge Date and Time
Discharge Date/Time: 02/25/24 15:48
Print Language: ARABIC
[2024-02-27 18:43] LABS: Calprotectin, Fecal 191 ug/g (<=49)
== END 2024-02-25 15:48 | disposition home or self-care (01) | DRG 872 ==
LOC: 4 EAST ACU 11:59
PROVIDERS: Physician Assistant; Physician Assistant Medical; Surgery; ADMITTING PHYSICIAN Surgery; CONSULT PHYSICIAN Internal Medicine; EMERGENCY PHYSICIAN Emergency Medicine
DX: A41.9 Sepsis, unspecified organism (principal); K57.92 Diverticulitis of intestine, part unspecified, without perforation or abscess without bleeding; K50.00 Crohn's disease of small intestine without complications; E87.1 Hypo-osmolality and hyponatremia; I10 Essential (primary) hypertension; F10.10 Alcohol abuse, uncomplicated
CPT/HCPCS: 74019; 74177; 80048; 80053; 81003; 81015; 83605; 83690; 83993; 85025; 85027; 86140; 87040; 87045; 87046; 87427; 96361; 96365; 96375; 99285; Q9967

== ENCOUNTER → 2024-05-27 06:33 | Day surgery (SDC) | payer OTHER, SELFPAY | LOC: GI 06:33 | PROVIDERS: ATTENDING PHYSICIAN Internal Medicine Gastroenterology | DX: K63.3 Ulcer of intestine (principal); K63.89 Other specified diseases of intestine; K64.0 First degree hemorrhoids; K57.30 Diverticulosis of large intestine without perforation or abscess without bleeding; C18.7 Malignant neoplasm of sigmoid colon; D12.3 Benign neoplasm of transverse colon; D12.5 Benign neoplasm of sigmoid colon | CPT/HCPCS: 45385; 45381; 45380; 88305; 88342 ==

== ENCOUNTER → 2024-06-04 13:10 | Outpatient (REF) | payer OTHER, SELFPAY | LOC: RAD 13:10 | PROVIDERS: ATTENDING PHYSICIAN Internal Medicine Gastroenterology; FAMILY PHYSICIAN Family Medicine | DX: C18.7 Malignant neoplasm of sigmoid colon (principal) | CPT/HCPCS: 71260; 74177; Q9967 ==

== ENCOUNTER 2024-06-13 06:28 | Day surgery (SDC) | payer OTHER, SELFPAY ==
[2024-06-13 13:25] VITALS: BMI 35.5
[2024-06-13 13:26] VITALS: BMI 35.5
[2024-06-13 13:27] VITALS: BP 153/98
[2024-06-13 15:00] VITALS: BP 120/100
[2024-06-13 15:15] VITALS: BP 124/93
[2024-06-13 15:30] VITALS: BP 144/95
== END 2024-06-13 15:41 | disposition home or self-care (01) ==
LOC: SDS 06:28
PROVIDERS: ATTENDING PHYSICIAN Internal Medicine Gastroenterology
DX: C18.7 Malignant neoplasm of sigmoid colon (principal); K57.30 Diverticulosis of large intestine without perforation or abscess without bleeding; K64.0 First degree hemorrhoids
CPT/HCPCS: 45349; 88305; 88342

== ENCOUNTER 2024-07-18 10:59 | Inpatient (IN) | payer OTHER, SELFPAY ==
[2024-07-05 07:15] LABS: % Basophils 0.3 % (0-2); % Eosinophils 1.9 % (0-6); % Immature Granulocytes 0.2 % (0-0.5); % Lymphocytes 39.2 % (20.5-51.1); % Monocytes 7.5 % (1.7-9.3); % Neutrophils 50.9 % (42.2-75.2); Absolute Eosinophils 0.1 10^3/uL (0-0.7); Absolute Lymphocytes 2.3 10^3/uL (1.2-3.4); Absolute Monocytes 0.4 10^3/uL (0.1-0.6); Hematocrit 43.8 % (39.0-52.0); Mean Corp Hgb Conc. 34.2 g/dL (33.0-37.0); Mean Corpuscular Hgb 26.8 pg (27.0-31.0); Mean Corpuscular Volume 78.4 fL (80.0-94.0); Mean Platelet Volume 8.6 fL (7.4-10.4); Nucleated Red Blood Cells % 0 % (-); Platelet Count 247 10^3/uL (130-400); Red Blood Cell Count 5.59 10^6/uL (4.70-6.10); Red Cell Dist. Width 14.6 % (11.5-14.5); White Blood Cell Count 5.8 10^3/uL (4.8-10.8)
[2024-07-05 07:27] LABS: APTT 25.7 Sec (23.4-35.0); INR 1.08; PT 13.8 Sec (11.4-14.6)
[2024-07-05 07:41] LABS: ALT (SGPT) 25 U/L (0-50); AST (SGOT) 27 U/L (17-59); Albumin 4.6 g/dl (3.5-5.0); Alkaline Phosphatase 80 U/L (38-126); Blood Urea Nitrogen 15 mg/dl (9-20); Calcium 9.7 mg/dl (8.4-10.2); Carbon Dioxide 24 mmol/L (22-30); Chloride 104 mmol/L (98-107); Glucose 109 mg/dl (70-99); Potassium 4.4 mmol/L (3.5-5.1); Sodium 142 mmol/L (135-145); Total Bilirubin 1.5 mg/dl (0.2-1.3); Total Protein 7.5 g/dl (6.3-8.2); eGFR > 60.00
[2024-07-05 09:28] LABS: Glycohemoglobin (HgbA1c) 5.4 % (4.0-5.6)
--- NOTE | 2024-07-05 13:34 | PTCARENOTE ---
Patients 07/05 ECG abnormal- reviewed by Dr. Landry-no additional interventions requires
[2024-07-18] VITALS (11 sets, daily range): BP systolic 133–149; BP diastolic 88–101; BMI 36.3
[2024-07-18] MEDS: CELEBREX 200 MG PO (12:06)
[2024-07-18] MEDS: TYLENOL 1000 MG PO ×2 (12:06→23:00)
[2024-07-18] MEDS: LYRICA 150 MG PO (12:07)
[2024-07-18] MEDS: NORMOSOL-R/PLASMALYTE-A 1000 IV ×2 (12:18→19:42)
[2024-07-18] MEDS: HEPARIN 5000 UNITS SC (13:09)
--- NOTE | 2024-07-18 18:59 | W.IMMPOSTOP ---
Addendum entered and electronically signed by Sheldon Lowry MD 07/30/24 18:50:
Error, missing information: surgery was for curative intent
Original Note:
Surgical Immed Post Op Note
-
Primary Surgeon: Sheldon Lowry MD
Assisting Surgeon: LOGAN Padilla
Pre-op Diagnosis: sigmoid colon cancer
Post-op Diagnosis: sigmoid colon cancer
Procedure Performed: robotic sigmoidectomy, lysis of adhesion greater than 45 mins, mesenteric angiography, flexible sigmoidoscopy, TAP block
Anesthesia Type: general
Specimen / Cultures: sigmoid colon, proximal and distal donut
Estimated Blood Loss: 50mL
IVF: 1.4L crystalloid
UOP: 750mL
Complications: none
Operative Findings: mild adhesions in the RLQ associated with the cecum and terminal ileum, taken down easily with blunt dissection; no concerning peritoneal or liver lesions; identified tattoo in the distal sigmoid and mid-sigmoid; sigmoid was
quite redundant; anatomy was distorted due to significant inflammation in the mesentery, possibly due to tattoo; on flex sig, confirmed proximal and distal tattoo about 5cm from the malignant polyp scar; high ligation of TOYIN; performed
intracorporeal EEA stapled anastomosis, negative leak test, donuts intact x2; performed laparoscopic TAP block
--- NOTE | 2024-07-18 19:11 | OR.RPT ---
Operative Report
Operative Report
DATE OF OPERATION: 07/18/2024
SURGEON: Sheldon Lowry MD
PREOPERATIVE DIAGNOSIS: Sigmoid colon cancer
POSTOPERATIVE DIAGNOSIS: Sigmoid colon cancer
OPERATION: Robotic sigmoidectomy, adhesiolysis greater than 45 min, mesenteric angiography with ICG, flexible sigmoidoscopy, laparoscopic TAP block
ASSISTANTS:
1. LOGAN Padilla
ANESTHESIA: General
ESTIMATED BLOOD LOSS: 50 mL
IVF: 1.4 L
URINE OUTPUT: 750 mL
FINDINGS:
1. Significant amount of adhesions in the RLQ associated with the cecum, terminal ileum and anterior abdominal wall, as well as significant adhesions from the sigmoid to the LLQ and left pelvic brim
2. No concerning lesions noted on the peritoneal surfaces or surface of the liver; identified proximal tattoo in the mid sigmoid and distal tattoo in the distal sigmoid; confirmed on flexible sigmoidoscopy
3. Transected proximally in the mid sigmoid, proximal to the proximal tattoo, and at the rectosigmoid junction; performed high ligation of the TOYIN; confirmed good perfusion to our staple lines and performed an intracorporeal stapled EEA
anastomosis; donuts intact x 2, negative leak test, anastomosis intact on flexible sigmoidoscopy
SPECIMENS:
1. Sigmoid colon
2. Proximal donut
3. Distal donut
DRAINS: None
COMPLICATIONS: No immediate complications.
INDICATIONS: The patient is a 54-year-old male who initially presented to [facility] in January 2024 with abdominal pain and was found to have thickening in the cecum and terminal ileum with microperforation, concerning for ileal
diverticulitis. He completely recovered from this and underwent a colonoscopy on 05/27/[address] Finnegan to workup the colitis/ileitis. She identified SCAD in the ascending colon, removed 8 tubular adenomas and identified a 3.5 cm sigmoid polyp
that she tattooed proximally and distally and biopsied. Biopsies showed 'at least intramucosal adenocarcinoma.' Then, Dr. Barrientos performed a flexible sigmoidoscopy with EMR of the sigmoid polyp on 06/13/24. The path showed invasive adenocarcinoma
with a positive deep margin. Therefore, I recommended surgery. His staging CT CAP showed a 3 mm RML pulmonary nodule, likely benign and no other concerning mets or lymphadenopathy. His CEA was 1.1. The operation was discussed with the patient in
detail, including the risks, benefits and alternatives. Risks described included, but not limited to, bleeding, infection, anastomotic leak, damage to nearby structures (i.e.- ureter, bowel, solid organs), incisional hernia, need for ostomy
creation, conversion to open, inability to remove the entire cancer, future recurrence or metastasis and anesthetic risks. The patient understood and agreed to proceed.
PROCEDURE IN DETAIL: The patient was taken to the operating room and placed on the operating table in supine position. Sequential compression devices were placed bilaterally. General anesthesia was then induced and the patient was intubated without
complication. The patient was then placed in lithotomy position with both arms tucked. Kat catheter was placed with sterile technique. The abdomen was then shaved, prepped and draped in a sterile fashion. A time-out was then performed verifying
the correct patient, procedure, operative site, positioning, and special equipment. Anesthesia placed an orogastric tube. Preoperative antibiotics were given. A marking pen was used to jose carlos out the midline.
An 8 mm incision at Sellers's point was made with an 11 blade scalpel. A Veress needle was used to gain abdominal access. After 3 clicks, the insufflation was connected to the Veress needle and the opening pressure was noted to be less than 8 mmHg.
The abdomen was then insufflated to a pressure of 12 mmHg. An 8 mm robotic trocar was then inserted. The robotic camera was advanced and intra-abdominal placement was confirmed. The abdomen was examined. No injuries were noted from port entry or
from the Veress needle. No concerning lesions were noted on the surface of the liver or the peritoneum. There were some adhesions from the right lower quadrant to the anterior abdominal wall which were filmy and easily taken down with blunt
dissection. The remaining three 8mm robotic ports were placed under direct visualization in a diagonal fashion from Sellers's point to the right lower quadrant, as well as an 8mm assist port in the right lateral mid abdomen, taking care to avoid
injury to the right epigastric vessels. The left upper quadrant port was changed to the air seal port.
A 4 cm Pfannenstiel incision was created 2 fingerbreadths above the pubic symphysis. This was carried down to the anterior fascia with electrocautery and hemostasis was assured. The fascia was then incised to just beyond the length of the skin
incision. The fascia was grasped with Pamela's and elevated. The adhesions to the anterior fascia were taken down bluntly from the rectus abdominis muscle and the midline attachment was taken down with electrocautery. This was performed both
superiorly and inferiorly to our incision. The rectus was then split along the midline, first scoring the linea alba with electrocautery, then bluntly splitting with a Gloria clamp to reveal the peritoneum, which was grasped and elevated with
Kellys. The layer of preperitoneal fat was thick and the robotic endoscope was inserted in order to assist with identifying the peritoneal layer and ensuring no injury to peritoneal structures. The peritoneum was then incised with Metzenbaum
scissors. The peritoneum was then incised cranially and caudally to the greatest extent that our incision would allow, taking care to avoid injury to the bladder. A small Arturo with port cap was placed and a robotic 12 mm port was placed through
the port cap. Then, the patient was placed in steep trendelenburg and [id number]. The omentum was grasped and retracted over the transverse colon with laparoscopic graspers. The robot was docked from the patient's left side. From the RLQ to
Sellers's point, the instruments introduced were the scissors, camera, bipolar grasper and tip-up grasper, respectively.
There were a significant amount of interloop adhesions between the cecum, terminal ileum and sigmoid colon. These were taken down carefully with sharp dissection. The small bowel was retracted out of the pelvis and towards the right upper
quadrant. Several adhesions were noted from the left pelvic sidewall to the sigmoid colon, which were taken down with sharp dissection and electrocautery. There were also adhesions between the sigmoid colon and the pelvic inlet circumferentially
that were freed up with blunt dissection. There was more adhesions and chronic inflammation around the distal sigmoid than I would have anticipated, possibly due to the inflammatory reaction from the tattoos. The sigmoid was then grasped and
elevated to commence a medial to lateral dissection. However, the peritoneum was very thick and not flexible. Additionally, the mesocolon was fatty and redundant. Lastly, the right iliac was oriented quite medially and was tortuous, distorting
the normal anatomy. The appropriate plane was not easily identified. Therefore, I began with a lateral to medial dissection. I grasped the sigmoid and retracted towards the right upper quadrant. I freed up the mesocolon from the LLQ and left
pelvis. I easily identified the left ureter by witnessing vermiculation. I kept the left ureter and left gonadal safe from my dissection. I took down the white line of Toldt up to the distal descending colon and mobilized the mesocolon from the
retroperitoneum, taking care to avoid injury to Gerota's fascia. I scored the peritoneum overlying the left pelvis and mobilized the rectosigmoid from the left side of the pelvis, taking care to keep the left ureter safe. I retracted the sigmoid
laterally to attempt a medial to lateral dissection again. I scored the peritoneum overlying the sacral promontory. Ultimately, I discovered that the right iliac artery was not in its usual retroperitoneal plane. I was able to dissect the
mesocolon from the right iliac, taking care to avoid injury to the right iliac artery. I was able to identify the presacral plane and connected this to my lateral dissection. I carried this dissection posteriorly to just beyond the sacral
promontory. I continued my dissection up the right side of the pelvis to match the level of my dissection on the left. My dissection remained above the anterior reflection. I took the presacral dissection superiorly towards the TOYIN pedicle,
taking care to avoid injury to the hypogastric nerves. The TOYIN pedicle was difficult to dissect as there was a significant amount of fatty tissue and possibly lymphadenopathy associated with it. I took care to include the bulky mesentery with the
specimen for a good lymph node harvest in case there was any tumor deposits within the lymph nodes. After very careful dissection, the TOYIN was dissected out circumferentially. The left ureter was kept safe from this dissection.
Prior to dividing the TOYIN, I performed a flexible sigmoidoscopy to confirm my tattoo markings and the relationship of them to the polyp scar. Identified the distal tattoo at the distal sigmoid, 3 to 4 cm proximal to the rectosigmoid junction. I
identified what appeared to be a scar in the mid/distal sigmoid. I identified the proximal tattoo in the mid sigmoid colon. The tattoos were easily greater than 5 cm from the likely polypectomy scar. Since he had multiple sigmoid polyps removed,
it is difficult to confirm that this is the polypectomy scar from the malignant polyp, but I did not see any polypectomy scar close to the tattoos, so I felt transecting the sigmoid outside of the tattoos would provide an adequate margin. I divided
the TOYIN pedicle in a high-ligation fashion, about 2 cm from its takeoff, using the white load of the robotic stapler, ensuring that the left ureter was kept safe. The TOYIN stump was hemostatic. I grasped the specimen side of the TOYIN pedicle and
elevated this. I divided the mesentery toward my proximal transection point using the vessel sealer, to about 2 cm proximal to the proximal tattoo.
I turned back to the pelvis for my distal staple line. I retracted the rectosigmoid anteriorly again, and then created a tunnel through the mesorectum at my proposed distal transection point on the rectum, which was just distal to the rectosigmoid
junction. I divided the mesorectum with the vessel-sealer. I used a 60 mm robotic stapler with a blue load to come across the proximal rectum. Anesthesia injected ICG. Using firefly, I evaluated my proposed proximal transection point. This
appeared ischemic. I selected a point about 3 to 4 cm more proximal which was well-perfused. I cleaned up the mesentery circumferentially at this point. I elected to proceed with an intracorporeal end-to-end stapled anastomosis with EEA stapler.
A colotomy in the devascularized segment of colon was created using the robotic scissors at a point distal to our proposed proximal transection point. The anvil with a long Prolene suture attached at the tip was then carefully passed through the
colotomy and advanced proximally up the descending colon, with the long Prolene remaining outside of the colon. The colotomy was then closed around the Prolene stitch using a V-Loc running stitch. The robotic stapler with a blue load was used to
staple and divide the descending colon at our proposed transection point where adequate perfusion was noted on firefly. The specimen was then placed in the left upper quadrant. The Prolene attached to the anvil was grasped and pulled through the
staple line after removing a few ashley. I grasped and elevated the anvil and cleaned up the staple line from intervening mesentery and fat. The anvil was seated along the staple line nicely without intervening diverticula or mesentery.
I checked the reach of the proposed anastomosis and it was very adequate. The operative field was surveyed and hemostasis was ensured. Then, sizers were passed up the rectum to ensure adequate circumference and length. I passed the EEA stapler
transanally to the distal staple line. The pin was extended and was connected with the anvil. After ensuring there was no twist to the mesentery and there was no tension, the EEA stapler was then closed for 1 minute and then fired. Both donuts
were intact and were sent separately for pathology. A leak test was performed by filling the pelvis with saline, occluding the proximal lumen and insufflating with the flexible sigmoidoscope. There was no evidence of leak from the anastomosis.
Endoscopically, the anastomosis was intact without evidence of bleeding. The colorectum was desufflated and the flexible sigmoidoscope removed.
The robotic instruments were removed and the robot was undocked. Using laparoscopic visualization, a TAP block was performed using a total of 30 mL of 0.25% Marcaine with epinephrine mixed with dexamethasone and injecting in the transversus
abdominis plane bilaterally. The remaining ports were removed under direct visualization and no bleeding was noted. Due to the bulk of the mesentery on the specimen, the Pfannenstiel incision was preemptively extended 1 cm on each side, for a
total of 6 cm. The specimen was removed without difficulty. The Pfannenstiel incision was then closed in layers. The peritoneum was closed with a running #1 Vicryl stitch. The anterior fascia was closed using a #1 Stratafix suture. The
incisions were irrigated. The remaining 30 cc of 0.25% Marcaine with epinephrine mixed with dexamethasone were injected around the incisions. The incisions were closed with running subcuticular 4-0 Monocryl and dressed with Dermabond.
At this point, the procedure was complete. The patient was awoken and extubated without complication. All needle, sponge and instrument counts were reported as correct. The patient tolerated the procedure well and was transferred to the recovery
room in stable condition with the kat in place.
DICTATED BY: Sheldon Lowry MD
[2024-07-18] MEDS: TORADOL 15 MG IV (19:41)
[2024-07-18] MEDS: SUBLIMAZE 50 MCG IV ×2 (19:42→19:57)
--- NOTE | 2024-07-18 21:20 | PTCARENOTE ---
Pt arrived on from PACU at 20:52, post Robotic Sigmoidectomy. Pt's sister Michelle arrived with pt. PMH HTN, HLD, Diverticulitis, Diverticulosis, Polyps, Colon Cancer, anxiety, b/l knee surgery. Pt has 5 lap sites & a transverse lower abdominal
incision. Pt has a kat to be removed POD#2. Pt AOx3, bed in a low position, call corrales in reach.
[2024-07-18] MEDS: DILAUDID 0.5 MG IV (21:28)
[2024-07-19 00:05] VITALS: BP 146/91
[2024-07-19] MEDS: TORADOL 15 MG IV ×4 (01:00→20:14)
[2024-07-19] MEDS: DILAUDID 0.5 MG IV ×2 (01:39→05:45)
[2024-07-19 03:25] VITALS: BP 129/84
[2024-07-19] MEDS: TYLENOL 1000 MG PO ×3 (05:09→17:00)
[2024-07-19 06:00] VITALS: BMI 37.1
[2024-07-19 07:00] LABS: % Immature Granulocytes 0.4 % (0-0.5); % Lymphocytes 12.2 % (20.5-51.1); % Monocytes 7.9 % (1.7-9.3); % Neutrophils 79.5 % (42.2-75.2); Absolute Lymphocytes 0.9 10^3/uL (1.2-3.4); Absolute Monocytes 0.6 10^3/uL (0.1-0.6); Absolute Neutrophils 5.9 10^3/uL (1.4-6.5); Hematocrit 41.9 % (39.0-52.0); Hemoglobin 14.5 g/dL (13.0-18.0); Mean Corp Hgb Conc. 34.6 g/dL (33.0-37.0); Mean Corpuscular Hgb 27.6 pg (27.0-31.0); Mean Corpuscular Volume 79.8 fL (80.0-94.0); Mean Platelet Volume 8.8 fL (7.4-10.4); Nucleated Red Blood Cells % 0 % (-); Platelet Count 214 10^3/uL (130-400); Red Blood Cell Count 5.25 10^6/uL (4.70-6.10); Red Cell Dist. Width 14.5 % (11.5-14.5); White Blood Cell Count 7.4 10^3/uL (4.8-10.8)
[2024-07-19 07:10] VITALS: BP 154/97
[2024-07-19 07:47] LABS: Blood Urea Nitrogen 11 mg/dl (9-20); Calcium 8.7 mg/dl (8.4-10.2); Carbon Dioxide 20 mmol/L (22-30); Chloride 101 mmol/L (98-107); Estimated Creatinine Clearance > 125 ml/min; Glucose 135 mg/dl (70-99); Potassium 4.1 mmol/L (3.5-5.1); Sodium 137 mmol/L (135-145); eGFR > 60.00
[2024-07-19] MEDS: NORVASC 5 MG PO (07:58)
[2024-07-19] MEDS: ENTEREG 12 MG PO ×2 (07:58→20:14)
--- NOTE | 2024-07-19 08:44 | W.PN.CRS1 ---
Today's Communication / Plan
-
As below
Assessment/Plan
-
54-year-old male with PMH of HTN and right-sided colitis/ileitis, consistent with SCAD, who was found to have a malignant polyp in the sigmoid with a positive margin, presented for elective surgery
POD 1 robotic sigmoidectomy, tap block
AF VSS
WBC 7.4, Hb 14.5 from 15.0, Cr 0.6, UOP adequate
� Will advance to regular diet; instructed patient to go slow: small meals and small bites
� Continue pain control with Tylenol, Toradol, Dilaudid as needed; will add oxycodone as needed; continue Entereg
� DC Crowell
� Start DVT PPx with Lovenox; will need a total of 28 days of postop DVT PPx, prescribe Eliquis 2.5 mg twice daily on discharge
� OOB/encourage IS
� Continue amlodipine for HTN
Dispo�possible DC in 1 to 2 days
Subjective Data
Subjective Data
Date of Service: July 19, 2024
Overnight, had issues with back spasm/pain. Improved after pain medicine, no issues this morning.
Pain otherwise controlled.
Denies nausea/vomiting. Tolerating diet.
-flatus -BMs +voiding
Pt is OOB.
Objective Data
-
Vital Signs
Temp Pulse Resp BP Pulse Ox
98.4 F 92 18 154/97 95
07/19/24 07:10 07/19/24 07:58 07/19/24 07:10 07/19/24 07:58 07/19/24 07:10
Intake & Output
07/18/24 07/19/24 07/20/24
06:59 06:59 06:59
Intake Total 1180 / 1180
Output Total 610 / 610
Balance 570 / 570
Intake:
Oral fluids 480 / 480
IV fluids (Total) 700 / 700
Normosol 100 / 100
Output:
Urine, Crowell 610 / 610
Lab Results
07/19/24 06:16
07/19/24 06:16
Physical Exam
-
General: No Acute Distress and AOx3
HEENT: Grossly Normal
Abdomen: Soft, Non Distended, Tender (appropriately ttp near incisions), No Guarding and No Rebound
Skin: Warm and Dry
Wound: No Signs of Infection, Dressing in Place (Dermabond) and No Skin Erythema
[2024-07-19] MEDS: ROXICODONE 10 MG PO ×3 (09:40→22:40)
[2024-07-19] MEDS: NORMOSOL-R/PLASMALYTE-A IV (14:16)
--- NOTE | 2024-07-19 14:26 | PTOTSP ---
Received order for PT and reviewed chart. S/w RN who reports pt got himself dressed and has been ambulating laps in the hallway independently. We agreed pt does not need inpatient PT. Will sign off.
--- NOTE | 2024-07-19 15:29 | CM ---
Met with patient at bedside; initial assessment completed
Pharmacy verified: [facility] @ [id number] [facility]
Patient lives alone in apartment; 10 steps down to enter; bath has tub w/shower
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
NO DME
NO SNF or Home Health History
Sister or Friend will transport home
Plan: discharge to home; no needs anticipated
[2024-07-19 15:35] VITALS: BP 144/65
[2024-07-19] MEDS: LOVENOX 40 MG SC (17:00)
[2024-07-19 19:06] VITALS: BP 139/93
[2024-07-19 23:02] VITALS: BP 166/88
[2024-07-20] MEDS: TYLENOL 1000 MG PO ×2 (01:57→06:01)
[2024-07-20] MEDS: TORADOL 15 MG IV ×2 (01:57→08:48)
[2024-07-20 06:00] VITALS: BMI 37.0
[2024-07-20 07:00] VITALS: BP 136/97
[2024-07-20] MEDS: NORVASC 5 MG PO (08:47)
[2024-07-20] MEDS: ENTEREG 12 MG PO (08:47)
--- NOTE | 2024-07-20 09:51 | W.PN.CRS1 ---
Today's Communication / Plan
-
Dispo planning
Assessment/Plan
-
54-year-old male with PMH of HTN and right-sided colitis/ileitis, consistent with SCAD, who was found to have a malignant polyp in the sigmoid with a positive margin, presented for elective surgery
POD 2 robotic sigmoidectomy, tap block
AFVSS
� Continue regular diet
� Continue pain control with Tylenol, Toradol, oxycodone as needed
� DVT PPx with Lovenox; will need a total of 28 days of postop DVT PPx, Eliquis 2.5 mg twice daily on discharge
� OOB/encourage IS
� Continue amlodipine for HTN
Discharge to home
Subjective Data
Procedure
07/18/24 robotic sigmoidectomy, lysis of adhesion greater than 45 mins, mesenteric angiography, flexible sigmoidoscopy, TAP block
Subjective Data
Date of Service: July 20, 2024
Patient seen and examined at bedside with Dr. Pennington. Mark n/v. Tolerating diet. Minimal discomfort. Passing flatus and stools. Voiding without difficulty. Eager to go home.
Objective Data
-
Vital Signs
Temp Pulse Resp BP Pulse Ox
98.0 F 67 16 136/97 97
07/20/24 07:00 07/20/24 08:47 07/20/24 07:00 07/20/24 08:47 07/20/24 07:00
Intake & Output
07/19/24 07/20/24 07/21/24
06:59 06:59 06:59
Intake Total 1180 / 1180 560 / 560
Output Total 610 / 610 1050 / 1050
Balance 570 / 570 -490 / -490
Intake:
Oral fluids 480 / 480 560 / 560
IV fluids (Total) 700 / 700
Normosol 100 / 100
Output:
Urine, Crowell 610 / 610 550 / 550
Urine, Voided 500 / 500
Other:
Number of approximated MODERATE 2
amounts of urine
Lab Results
07/19/24 06:16
07/19/24 06:16
Physical Exam
-
General: No Acute Distress and AOx3
HEENT: Grossly Normal
Abdomen: Soft, Non Distended, Tender (appropriately ttp near incisions), No Guarding and No Rebound
Skin: Warm and Dry
Wound: No Signs of Infection, Dressing in Place (Dermabond) and No Skin Erythema
--- NOTE | 2024-07-20 10:05 | CM ---
DC home today with no skilled discharge needs. Friend to transport.
--- NOTE | 2024-07-20 11:11 | W.DCSUMMARY ---
Discharge Summary
Discharge Data
Date of Admission: 07/18/24
Date of Discharge: 07/20/24
-
Pending Results: No
Hospital Course
Mr Jennings is a 54 yo male with a history of sigmoid cancer who presented for operative management with robotic sigmoidectomy with lysis of adhesions, mesenteric angiography, flexible sigmoidectomy with tap block. He tolerated the procedure well
without complication. Diet was advanced and well tolerated post operatively with good control of pain. He had good bowel recovery prior to discharge. He was given Eliquis 2.5mb bid for VTE prophylaxis upon discharge. Outpatient follow up planned in
the coming weeks.
Discharge Plan
-
Patient Disposition: Home (Routine Discharge)
Discharge Diagnosis/Procedures: robotic sigmoidectomy
Condition: Good
Diet: Regular
Activity: No strenuous activity
Additional Activity: No lifting over 10lbs (gallon of millk)
Driving Restrictions: No driving for 1 week
Bathing Restrictions: OK to Shower
Wound Care: Allow glue to naturally fall off. Do not pick at incisions.
Activity Restrictions/Additional Instructions:
Call your surgeon if you have worsening pain, nausea with vomiting or a fever >100.5
Referrals:
Eduardo Maurice MD [Family Provider] -
Sheldon Lowry MD [Active] - 08/02/24 10:45 am
Additional Discharge Medication Instructions: Tylenol or Ibuprofen as needed for pain. Maximum dose of Tylenol is 4,000mg in 24 hours. Maximum dose of Ibuprofen is 3,200mg in 24 hours.
Prescriptions:
New
Eliquis 2.5 mg tablet
2.5 mg PO BID 28 Days Qty: 56 0RF
oxycodone 5 mg tablet
5 mg PO Q4HPRN PRN (Reason: breakthrough/severe pain) Qty: 20 0RF
Continued
amlodipine 5 mg Tablet
5 mg PO DAILY Qty: 30 0RF
Discharge Orders:
Discharge Patient (As Directed); Ordered 07/20/24
Ordered By: Cindy Pinto
Discharge Date and Time
Discharge Date/Time: 07/20/24 11:00
Print Language: TURKISH
== END 2024-07-20 11:00 | disposition home or self-care (01) | DRG 331 ==
LOC: 2 SOUTH 10:59
PROVIDERS: ADMITTING PHYSICIAN Surgery; FAMILY PHYSICIAN Family Medicine
PROC: 0DJD8ZZ Inspection of Lower Intestinal Tract, Via Natural or Artificial Opening Endoscopic (ICD-10-PCS; 2024-07-18)
PROC: 0DTN4ZZ Resection of Sigmoid Colon, Percutaneous Endoscopic Approach (ICD-10-PCS; 2024-07-18)
PROC: 0DNB4ZZ Release Ileum, Percutaneous Endoscopic Approach (ICD-10-PCS; 2024-07-18)
PROC: 0DNH4ZZ Release Cecum, Percutaneous Endoscopic Approach (ICD-10-PCS; 2024-07-18)
PROC: 8E0W4CZ Robotic Assisted Procedure of Trunk Region, Percutaneous Endoscopic Approach (ICD-10-PCS; 2024-07-18)
PROC: 0DNN4ZZ Release Sigmoid Colon, Percutaneous Endoscopic Approach (ICD-10-PCS; 2024-07-18)
DX: C18.7 Malignant neoplasm of sigmoid colon (principal); I10 Essential (primary) hypertension; K66.0 Peritoneal adhesions (postprocedural) (postinfection); K64.8 Other hemorrhoids; R91.1 Solitary pulmonary nodule; Z79.899 Other long term (current) drug therapy; Z86.010 Personal history of colon polyps; Z87.19 Personal history of other diseases of the digestive system; Z82.49 Family history of ischemic heart disease and other diseases of the circulatory system
CPT/HCPCS: 88304; 88309; 71046; 80048; 80053; 83036; 85025; 85610; 85730; 86850; 86900; 86901; 93005